=== PATIENT | female | born 1995 | race Caucasian/White ===

== ENCOUNTER 2021-04-26 16:02 | Emergency (ER) | payer OTHER ==
--- NOTE | 2021-04-26 17:17 | EDM.PDOC ---
ED HPI GENERAL MEDICAL PROBLEM - General Chief Complaint: Skin Complaint Stated Complaint: LUMP UNDER IV Time Seen by Provider: 04/26/21 16:07 Source of Information: Reports: Patient, Family History Limitations: Reports: No Limitations - History of Present Illness INITIAL COMMENTS - FREE TEXT/NARRATIVE: 25-year-old female presents for painful lump on left forearm after IV insertion 2 weeks ago. Patient is noted the area feels hard, lumpy, tender to palpation. She has not noted any fevers or redness around the area. - Related Data Allergies Allergy/AdvReac Type Severity Reaction Status Date / Time No Known Allergies Allergy Verified 04/26/21 16:54 Home Meds: Home Meds LORazepam [Ativan] 0.5 mg PO ASDIRECTED 04/26/21 [History] cephALEXin [Keflex] 500 mg PO Q8H 10 Days #30 cap 04/26/21 [Rx] traMADol [Ultram] 50 mg PO ASDIRECTED 04/26/21 [History] Past Medical History - Past Health History Medical/Surgical History: Denies Medical/Surgical History - Infectious Disease History Infectious Disease History: Reports: Novel Coronavirus Social & Family History - Family History Family Medical History: No Pertinent Family History - Tobacco Use Tobacco Use Status *Q: Never Tobacco User - Caffeine Use Caffeine Use: Reports: Coffee - Recreational Drug Use Recreational Drug Use: No ED ROS GENERAL - Review of Systems Review Of Systems: Comprehensive ROS is negative, except as noted in HPI. ED EXAM, SKIN/RASH Exam: See Below Exam Limited By: No Limitations General Appearance: Alert, WD/WN, No Apparent Distress Ears: Hearing Grossly Normal Throat/Mouth: Normal Voice, No Airway Compromise Head: Atraumatic, Normocephalic Respiratory/Chest: No Respiratory Distress, No Accessory Muscle Use Cardiovascular: Normal Peripheral Pulses, Regular Rate, Rhythm Extremities: Normal Inspection Neurological: Alert, Normal Cognition, Normal Gait, Sensory/Motor Deficit Psychiatric: Normal Affect Skin: Warm, Dry, Intact, Normal Color, Other (palpable indurated venous cord with TTP of L ventral forearm) Course - Vital Signs Last Recorded V/S: Last Vital Signs Temp 99.3 F 04/26/21 16:55 Pulse 114 H 04/26/21 16:55 Resp 17 04/26/21 16:55 BP 107/74 04/26/21 16:55 Pulse Ox 98 04/26/21 16:55 - Re-Assessments/Exams Free Text/Narrative Re-Assessment/Exam: 04/26/21 17:16 We will treat for phlebitis. Will give Keflex prescription for possible infection. Departure - Departure Time of Disposition: 17:12 Disposition: Home, Self-Care 01 Condition: Good Clinical Impression: Phlebitis - Discharge Information Instructions: Thrombophlebitis Additional Instructions: Your exam is consistent with phlebitis. Phlebitis is inflammation of the vein often after having an IV line placed. It is sometimes but not always related to infection. I did prescribe an antibiotic that was sent to [facility] which is located in the [employer] You can also do warm compresses 3-4 times a day. You can use Motrin for pain relief. The following information is given to patients seen in the emergency department who are being discharged to home. This information is to outline your options for follow-up care. We provide all patients seen in our emergency department with a follow-up referral. The need for follow-up, as well as the timing and circumstances, are variable depending upon the specifics of your emergency department visit. If you don't have a primary care physician on staff, we will provide you with a referral. We always advise you to contact your personal physician following an emergency department visit to inform them of the circumstance of the visit and for follow-up with them and/or the need for any referrals to a consulting specialist. The emergency department will also refer you to a specialist when appropriate. This referral assures that you have the opportunity for follow-up care with a specialist. All of these measure are taken in an effort to provide you with optimal care, which includes your follow-up. Under all circumstances we always encourage you to contact your private physician who remains a resource for coordinating your care. When calling for follow-up care, please make the office aware that this follow-up is from your recent emergency room visit. If for any reason you are refused follow-up, please contact the [facility] Emergency Department at and asked to speak to the emergency department charge nurse. Please follow up with your primary care physician. If you do not have a primary care physician, see below: [facility] [address] [place] [id number] [facility] [address] [place] [address] [facility] [address] [place] [id number] Sepsis Event Note (ED) - Evaluation Sepsis Screening Result: No Definite Risk - Focused Exam Vital Signs: Vital Signs Temp Pulse Resp BP Pulse Ox 04/26/21 16:55 99.3 F 114 H 17 107/74 98
== END 2021-04-26 18:01 | disposition home or self-care (01) ==
LOC: MW.ED 16:02
DX: I80.9 Phlebitis and thrombophlebitis of unspecified site (principal); Z86.16 Personal history of COVID-19
CPT/HCPCS: 99283